=== PATIENT | male | born 1980 | race Caucasian/White ===

== ENCOUNTER 2017-05-26 08:52 | Emergency (ER) | payer OTHER ==
[~2017-05-26] VITALS: Ht 177.8 cm; Wt 99.8 kg
[~2017-05-26 08:52] MED LIST: ANTICRE6 PO; OXYC-360 PO; Z.0.UNABLE TO OBTAIN
[2017-05-26 09:03] VITALS: BP 130/80; PULSE 107; RESP 16; TEMP 98; O2SAT 97
[2017-05-26] MEDS ORDERED: SODIUM CHLOR 0.9% 1000 ML INJ 1,000 ML IV SCH ×3 (09:14→10:15)
[2017-05-26] MEDS ORDERED: MORPHINE SULFATE 4 MG/ML INJ IV PUSH ONE (09:15)
[2017-05-26] MEDS ORDERED: SODIUM CHLORIDE 0.9% FLUSH 10 ML FLUSH IV FLUSH PRN (09:15)
[2017-05-26] MEDS ORDERED: ONDANSETRON HCL 4 MG/2 ML VIAL IVP ONE (09:15)
[2017-05-26 09:34] LABS: HEMATOCRIT 51.4 % (39.0-51.0); MEAN CELL VOLUME 84.4 FL (80.0-100.0); MEAN CORPUSCULAR HEMOGLOBIN 27.9 PG (27.0-34.0); MEAN CORPUSCULAR HGB CONC 33.1 % (32.0-36.0); PLATELET COUNT 311 TH/MM3 (150-450); RED BLOOD COUNT 6.09 MIL/MM3 (4.50-5.90); RED CELL DISTRIBUTION WIDTH 12.2 % (11.6-17.2); WHITE BLOOD COUNT 14.3 TH/MM3 (4.0-11.0)
[2017-05-26 09:35] LABS: HEMO FLAGS AUTO DIFF
[2017-05-26 09:47] LABS: BICARBONATE 25.2 MEQ/L (21.0-32.0); BLOOD UREA NITROGEN 15 MG/DL (7-18)
[2017-05-26 09:50] LABS: ALT (GPT) 32 U/L (12-78); AST (GOT) 18 U/L (15-37); BANDS 9 % (0-6); BASOPHILS 2 % (0-2); EOSINOPHILS 2 % (0-4); GLOMERULAR FILTRATION RATE 76 ML/MIN (>89); NEUTROPHIL # MANUAL DIFF 12.9 TH/MM3 (1.8-7.7); POLYS (SEG NEUTROPHILS) 81 % (16-70); WBC DIFF SAMPLE 100
[2017-05-26 09:51] LABS: PLATELET ESTIMATE SMEAR NORMAL (NORMAL); PLATELET MORPHOLOGY NORMAL (NORMAL); SCAN/DIFF FINAL DIFF MANUAL
[2017-05-26 09:52] LABS: TOTAL BILIRUBIN ADULT 0.9 MG/DL (0.2-1.0)
[2017-05-26 09:53] LABS: ALKALINE PHOSPHATASE 60 U/L (45-117); ANION GAP 10 MEQ/L (5-15); CHLORIDE 103 MEQ/L (98-107); POTASSIUM 4.2 MEQ/L (3.5-5.1); SODIUM (NA) 138 MEQ/L (136-145)
[2017-05-26] MEDS ORDERED: FAMOTIDINE 20 MG/2 ML VIAL IV PUSH SCH (10:00)
--- NOTE | 2017-05-26 10:03 | PD ---
HPI . Abdominal pain Chief Complaint: Abdominal Pain Time Seen by Provider: 09:14 Travel History International Travel<30 days: No Contact w/Intl Traveler<30days: No Traveled to known affect area: No History of Present Illness HPI This patient presents with a chief complaint of abdominal pain associated with vomiting and diarrhea. It all started last night. He describes the abdominal pain as epigastric, ripping and ranging in severity from 6-8/10. Pain is exacerbated by movement. He describes his emesis as food and water and tasting acidic. His diarrhea is described as watery and brown. He states that his children have been sick with a flulike illness. He reports occasional alcohol use. He denies tobacco or drug use. [facility] Past Medical History Medical History: Denies Significant Hx Past Surgical History Surgical History: No Previous Surgery Other Surgery: Yes (CYST REMOVED FROM BACK) Social History Alcohol Use: Yes (3 beers last night) Tobacco Use: No Substance Use: No Allergies-Medications (Allergen,Severity, Reaction): Coded Allergies: No Known Allergies (Verified Adverse Reaction, Unknown, 05/26/17) Reported Meds & Prescriptions Reported Meds & Active Scripts Active No Active Prescriptions or Reported Medications Review of Systems Except as stated in HPI: all other systems reviewed are Neg General / Constitutional: No: Fever, Chills Gastrointestinal: Positive: Nausea, Vomiting, Diarrhea, Abdominal Pain Genitourinary: No: Urgency, Frequency, Dysuria Physical Exam Narrative GENERAL: Patient looks very uncomfortable. He is writhing on the stretcher. SKIN: warm/dry. Normal color and turgor. HEAD: Normocephalic. Atraumatic. EYES: Pupils equal and round. No scleral icterus. No injection or drainage. ENT: No nasal bleeding or discharge. Mucous membranes pink and moist. NECK: Trachea midline. Full range of motion without pain.. CARDIOVASCULAR: Regular rate and rhythm. Heart sounds are normal. RESPIRATORY: No accessory muscle use. Clear to auscultation. Breath sounds equal bilaterally. GASTROINTESTINAL: Abdomen soft. Epigastric tenderness. No right upper quadrant tenderness. Bowel sounds present. Nondistended. MUSCULOSKELETAL: No obvious deformities. NEUROLOGICAL: Awake and alert. No obvious cranial nerve deficits. Motor grossly within normal limits. Normal speech. PSYCHIATRIC: Appropriate mood and affect; insight and judgment normal. Data Data Last Documented VS Vital Signs Date Time Temp Pulse Resp B/P (MAP) Pulse Ox O2 Delivery O2 Flow Rate FiO2 05/26/17 11:41 90 16 138/74 (95) 100 Room Air 05/26/17 09:03 98.0 Orders Orders Complete Blood Count With Diff (05/26/17 09:14) Comprehensive Metabolic Panel (05/26/17 09:14) Lipase (05/26/17 09:14) Lactic Acid (05/26/17 09:14) Iv Access Insert/Monitor (05/26/17 09:14) Morphine Inj (Morphine Inj) (05/26/17 09:15) Ondansetron Inj (Zofran Inj) (05/26/17 09:15) Sodium Chlor 0.9% 1000 Ml Inj (Ns 1000 M (05/26/17 09:14) Sodium Chloride 0.9% Flush (Ns Flush) (05/26/17 09:15) Famotidine Inj (Pepcid Inj) (05/26/17 10:00) Sodium Chlor 0.9% 1000 Ml Inj (Ns 1000 M (05/26/17 10:15) Sodium Chlor 0.9% 1000 Ml Inj (Ns 1000 M (05/26/17 10:15) Lactic Acid (05/26/17 12:00) Labs Laboratory Tests Test 05/26/17 09:31 05/26/17 12:05 White Blood Count 14.3 TH/MM3 Red Blood Count 6.09 MIL/MM3 Hemoglobin 17.0 GM/DL Hematocrit 51.4 % Mean Corpuscular Volume 84.4 FL Mean Corpuscular Hemoglobin 27.9 PG Mean Corpuscular Hemoglobin Concent 33.1 % Red Cell Distribution Width 12.2 % Platelet Count 311 TH/MM3 Mean Platelet Volume 9.1 FL CBC Comment AUTO DIFF Differential Total Cells Counted 100 Neutrophils % (Manual) 81 % Band Neutrophils % 9 % Monocytes % 6 % Eosinophils % 2 % Basophils % 2 % Neutrophils # (Manual) 12.9 TH/MM3 Differential Comment FINAL DIFF MANUAL Platelet Estimate NORMAL Platelet Morphology Comment NORMAL Red Cell Morphology Comment NORMAL Blood Urea Nitrogen 15 MG/DL Creatinine 1.10 MG/DL Random Glucose 120 MG/DL Total Protein 8.5 GM/DL Albumin 4.5 GM/DL Calcium Level 9.0 MG/DL Alkaline Phosphatase 60 U/L Aspartate Amino Transf (AST/SGOT) 18 U/L Alanine Aminotransferase (ALT/SGPT) 32 U/L Total Bilirubin 0.9 MG/DL Sodium Level 138 MEQ/L Potassium Level 4.2 MEQ/L Chloride Level 103 MEQ/L Carbon Dioxide Level 25.2 MEQ/L Anion Gap 10 MEQ/L Estimat Glomerular Filtration Rate 76 ML/MIN Lactic Acid Level 2.2 mmol/L 1.7 mmol/L Lipase 131 U/L MDM Medical Decision Making Medical Screen Exam Complete: Yes Emergency Medical Condition: Yes Differential Diagnosis Differential diagnosis of abdominal pain includes but is not limited to gastritis, pancreatitis, hepatitis, gastroenteritis, gallbladder disease, constipation, urinary retention, UTI, peptic ulcer disease, diverticulitis or appendicitis Narrative Course This patient presents with epigastric pain associated with vomiting and diarrhea. He did not have peritoneal signs. He is writhing on the bed. An IV was started. He was given IV morphine and Zofran. Labs were drawn. CBC & BMP Diagram 05/26/17 09:31 Total Protein 8.5 H, Albumin 4.5, Calcium Level 9.0, Alkaline Phosphatase 60, Aspartate Amino Transf (AST/SGOT) 18, Alanine Aminotransferase (ALT/SGPT) 32, Total Bilirubin 0.9 Lipase is normal at 131. Lactic acid level is 2.2. I was really expecting this patient to have an elevated lipase. He does not. His pain is markedly improved with morphine. I will add Pepcid for presumed gastritis. Because of his lactic acid level of 2.2, he will be given 3 L of fluid. Patient was reexamined. Vital Signs Date Time Temp Pulse Resp B/P (MAP) Pulse Ox O2 Delivery O2 Flow Rate FiO2 05/26/17 11:41 90 16 138/74 (95) 100 Room Air 05/26/17 09:03 98.0 107 16 130/80 (97) 97 GENERAL: Awake and alert and in no acute distress. SKIN: Warm and dry. Good color. CARDIOVASCULAR: Regular rate and rhythm. RESPIRATORY: Nonlabored respirations. Lungs are clear with full air movement throughout. ABDOMEN: Bowel sounds positive. Soft and nontender throughout. MUSCULOSKELETAL: Atraumatic. NEUROLOGICAL: Nonfocal. PSYCHIATRIC: Appropriate mood and affect. Repeat lactic acid is 1.7. Sepsis Criteria SIRS Criteria (2 or more): Heart rate over 90, WBC > 54847, < 4000 or > 10% bands Severe Sepsis (+one): Lactate >2 Criteria Outcome: Meets SIRS criteria, Meets sepsis criteria Diagnosis Primary Impression: Sepsis Qualified Codes: A41.9 - Sepsis, unspecified organism Additional Impressions: Gastritis Qualified Codes: K29.00 - Acute gastritis without bleeding Gastroenteritis Patient Instructions: Gastritis (DC), Gastroenteritis (DC), General Instructions Med/Other Pt SpecificInfo: Prescription(s) given Scripts Ondansetron (Zofran) 4 Mg Tab 4 MG PO Q6HR Y for NAUSEA OR VOMITING, #6 TAB 0 Refills Prov: Lisa Hatfield MD 05/26/17 Omeprazole Magnesium (Prilosec) 20 Mg Tab 20 MG PO DAILY, #30 TAB Prov: Lisa Hatfield MD 05/26/17 Disposition: 01 DISCHARGE HOME Condition: Stable Lisa Hatfield MD May 26, 2017 10:03
[2017-05-26 11:41] VITALS: BP 138/74; PULSE 90; RESP 16; O2SAT 100
[2017-05-26] MEDS ORDERED: PRIL20TA2 PO (12:38)
[2017-05-26] MEDS ORDERED: ZOFR4TAB PO (12:38)
== END 2017-05-26 13:17 | disposition home or self-care (01) ==
LOC: PHED 08:52
DX: A41.9 Sepsis, unspecified organism (principal); K29.00 Acute gastritis without bleeding; K52.9 Noninfective gastroenteritis and colitis, unspecified
CPT/HCPCS: 80053; 83605; 83690; 85007; 85027; 96361; 96374; 96375; 99284; J2270; J2405; J7030